=== PATIENT | female | born 1965 | race Hispanic/Latino ===

== ENCOUNTER 2016-12-23 08:57 | Outpatient (CLI) | payer OTHER ==
--- NOTE | 2016-12-23 16:01 | Mammography Report ---
BILATERAL DIGITAL AUGMENTED SCREENING MAMMOGRAM with CAD: 12/23/16 08:57:00 CLINICAL: Routine screening. COMPARISON:None available. She does not remember where she had a previous mammogram. FINDINGS: Screening views with and without implant displacement demonstrate heterogeneously dense breast, which may obscure small masses. Right asymmetries require additional imaging. No architectural distortion or suspicious calcifications. The left breast is negative. Intact subpectoral implants. IMPRESSION: Right asymmetries requiring additional imaging. BI-RADS CATEGORY: 0 -- Needs Additional Imaging RECOMMENDATION: Recall for right implant displaced spot compression views and right breast ultrasound if needed. ACR BI-RADS MAMMOGRAPHIC CODES: 0 = Needs additional imaging evaluation; 1 = Negative; 2 = Benign; 3 = Probably benign; 4 = Suspicious; 5 = Malignant; 6 = Known biopsy-proven malignancy COMMENT: 1. Dense breast tissue, i.e., adenosis, fibrocystic changes, etc., may obscure an underlying neoplasm. 2. Approximately 10% of cancers are not detected with mammography. 3. A negative mammography report should not delay biopsy if a clinically suspicious mass is present. COMMENT: Patient follow-up letters are generated via our [employer] application.
== END 2016-12-23 08:58 | disposition home or self-care (01) ==
LOC: SPVWC 08:57
PROVIDERS: ATTEND Family Medicine
DX: Z12.31 Encounter for screening mammogram for malignant neoplasm of breast (principal)
CPT/HCPCS: 77067; G0202

== ENCOUNTER 2017-01-04 09:08 | Outpatient (CLI) | payer OTHER ==
--- NOTE | 2017-01-04 10:24 | Ultrasound Report ---
RIGHT DIGITAL DIAGNOSTIC MAMMOGRAM and RIGHT BREAST ULTRASOUND: 01/04/17 09:08:00 CLINICAL: Recalled for asymmetry. COMPARISON:12/23/16 screening FINDINGS: Implant displaced spot compression views were performed and demonstrates satisfactory effacement of asymmetries. Ultrasound of the right breast (including all four quadrants and the retroareolar area) was performed and demonstrated normal fibroglandular and fatty structures. No mass, cyst or shadowing. Intact breast implant. IMPRESSION: Negative mammogram and negative right breast ultrasound. BI-RADS CATEGORY: 1 -- Negative RECOMMENDATION: Routine mammographic screening in one year. ACR BI-RADS MAMMOGRAPHIC CODES: 0 = Needs additional imaging evaluation; 1 = Negative; 2 = Benign; 3 = Probably benign; 4 = Suspicious; 5 = Malignant; 6 = Known biopsy-proven malignancy COMMENT: 1. Dense breast tissue, i.e., adenosis, fibrocystic changes, etc., may obscure an underlying neoplasm. 2. Approximately 10% of cancers are not detected with mammography. 3. A negative mammography report should not delay biopsy if a clinically suspicious mass is present. COMMENT: Patient follow-up letters are generated via our [employer] application.
== END 2017-01-04 09:09 | disposition home or self-care (01) ==
LOC: SPVWC 09:08
PROVIDERS: ATTEND Family Medicine
DX: T85.42XA Displacement of breast prosthesis and implant, initial encounter (principal)
CPT/HCPCS: 76641; G0206